=== PATIENT | female | born 1950 | race Two or more races ===

== ENCOUNTER 2022-10-09 12:05 | Outpatient (CLI) | payer OTHER | END 2022-10-09 23:59 | disposition home or self-care (01) | LOC: LAB 12:05 | PROVIDERS: ATTEND Specialist | DX: Z01.812 Encounter for preprocedural laboratory examination (principal); Z20.822 Contact with and (suspected) exposure to COVID-19 | CPT/HCPCS: U0003; C9803 ==

== ENCOUNTER → 2022-10-16 | Day surgery (SDC) | payer OTHER ==
[~2022-10-16] VITALS: Ht 172.7 cm; Wt 108.9 kg
[~2022-10-16] MED LIST: ACETAMINOPHEN 325 MG TABLET ONE; BUPIVACAINE 0.25% 75 MG/30 ML VIAL ONE; HYDROCODONE/APAP 5/325MG TABLET ONE; HYDROCODONE/APAP 5/325MG TABLET PO PRN
--- NOTE | 2022-10-16 08:30 | NUR ---
RECEIVED PATIENT AT THE NURSING STATION WITH SCHEDULED DAY SURGERY. PREOP ASSESSMENT, VITAL SIGNS, CONSENT SIGNING & CHECKLIST DONE WITH THE PATIENT
--- NOTE | 2022-10-16 08:45 | NUR ---
PATIENT IN [facility] PICKED UP BY SURGERY PERSONNEL FOR SCHEDULED SURGERY
--- NOTE | 2022-10-16 15:15 | NUR ---
PATIENT REMAIN STABLE AFTER SURGERY. DISCHARGED PER MD INSTRUCTION. PAIN MEDS GIVEN PRIOR TO DISCHARGE. ALL BELONGINGS ACCOUNTED FOR. MD'S INSTRUCTIONS GIVEN TO PATIENT BOTH VERBALLY AND IN WRITING. CHARGE NURSE AWARE OF THE DISCHARGE.
== END | disposition home or self-care (01) ==
LOC: DS 08:06
PROVIDERS: ATTEND Specialist
DX: G56.01 Carpal tunnel syndrome, right upper limb (principal)
CPT/HCPCS: 64721; 82962 ×2; J0690; J3490 ×3; A4565; A6402